=== PATIENT | male | born 1995 | race Caucasian/White ===

== ENCOUNTER 2018-08-17 16:17 | Emergency (ER) | payer SELFPAY ==
--- NOTE | 2018-08-17 16:21 | ED Physician Documentation ---
Ear Complaints - HISTORIAN Historian: patient - HPI Stated Complaint: right ear pain, cough and sore throat Chief Complaint: Earache Timing: still present Location of Pain: R ear Severity: mild Associated Symptoms: dull pain, aching, sore throat. denies: fever, chills, sharp pain, hearing loss, ringing, roaring Further Comments: yes (He states he started to cough a week ago, allergy drainge, no fever, right ear pain. No OTC meds are helping.) - ROS CONST: no problems CVS/RESP: none MS/SKIN/LYMPH: none NEURO/PSYCH: none - PAST HX Past History: none Allergies/Adverse Reactions: Allergies Allergy/AdvReac Type Severity Reaction Status Date / Time No Known Allergies Allergy Verified 08/17/18 16:32 Home Medications: Ambulatory Orders Medication Instructions Recorded NK 02/25/13 - SOCIAL HX Smoking History: non-smoker Alcohol Use: none Drug Use: none - FAMILY HX Family History: No - VITAL SIGNS Vital Signs: Vital Signs Temp Pulse Resp BP Pulse Ox 130/84 01/09/16 06:40 - REVIEWED ASSESSMENTS Nursing Assessment Reviewed: Yes Vitals Reviewed: Yes Ear Complaint Physical Exam - EXAM General Appearance: no acute distress, alert Ear: auricle nml, pain w movement of auricl, right, erythema, dullness, loss of landmarks, bulging of TM. No: mastoid swelling, cerumen Mouth/Throat: pharyngeal erythema Eye: eyes nml inspection Resp/CVS: chest non-tender, breath sounds nml, heart sounds nml, no resp. distress, lungs clear Abdomen: non-tender Skin: nml color, no skin rash Neuro/Psych: oriented x3 Discharge Clincal Impression: Acute otitis media Referrals: Primary Doctor,No [Primary Care Provider] - 2 Days Comments: 1. Cefdinr 300 mg take 1 by mouth twice daily x 14 days 2. Continue OTC meds as directed for pain 3. See PCP in 2-4 days if no improvement 4. Return to ER for any concerns Condition: Stable Disposition: 01 HOME, SELF-CARE Decision to Admit: NO Date of Decison to Admit: 08/17/18 Decision Time: 16:40
[2018-08-17 16:37] VITALS: BP 137/87
== END 2018-08-17 16:47 | disposition home or self-care (01) ==
LOC: ED 16:17
DX: H66.91 Otitis media, unspecified, right ear (principal)
CPT/HCPCS: 99282; 99283

== ENCOUNTER 2019-05-12 23:19 | Emergency (ER) | payer OTHER ==
--- NOTE | 2019-05-12 23:35 | ED Physician Documentation ---
Ear Complaints - HISTORIAN Historian: patient - HPI Stated Complaint: Rt earache today...COLIN that has decreased but ongoing for a week Timing: still present Location of Pain: R ear Severity: moderate Associated Symptoms: dull pain, aching. denies: fever, chills Further Comments: yes (He states he has had a headache which is resolved and now his right ear is hurting. No fever HE did take OTC med with mild relief. No sick contacts) - ROS CONST: no problems MS/SKIN/LYMPH: none NEURO/PSYCH: none - PAST HX Past History: none Allergies/Adverse Reactions: Allergies Allergy/AdvReac Type Severity Reaction Status Date / Time No Known Allergies Allergy Verified 05/12/19 23:32 Home Medications: Ambulatory Orders Medication Instructions Recorded NK 02/25/13 - SOCIAL HX Smoking History: non-smoker Alcohol Use: none Drug Use: none - FAMILY HX Family History: No - VITAL SIGNS Vital Signs: Vital Signs Temp Pulse Resp BP Pulse Ox 97.8 F 60 14 125/65 98 05/12/19 23:19 05/12/19 23:19 05/12/19 23:19 05/12/19 23:19 05/12/19 23:19 - REVIEWED ASSESSMENTS Nursing Assessment Reviewed: Yes Vitals Reviewed: Yes Ear Complaint Physical Exam - EXAM General Appearance: no acute distress, alert Ear: auricle nml, right, loss of landmarks, bulging of TM Mouth/Throat: lips nml, pharynx nml Nose: nml inspection Eye: eyes nml inspection Resp/CVS: chest non-tender, breath sounds nml, heart sounds nml, no resp. distress, lungs clear, reg. rate & rhythm Abdomen: non-tender Skin: nml color Neuro/Psych: oriented x3 Discharge Clincal Impression: Acute otitis media Referrals: Primary Doctor,No [Primary Care Provider] - 2 Days Comments: 1. Augmentin 875/125 mg take 1 by mouth twice daily x 10 days 2. OTC meds as directed as needed for pain 3. Follow up with PCP in 2-4 days 4. Return to ER for any increased concerns Condition: Stable Disposition: 01 HOME, SELF-CARE Decision to Admit: NO Date of Decison to Admit: 05/12/19 Decision Time: 23:45
[2019-05-12 23:37] VITALS: BP 125/65
[2019-05-12] MEDS: AMOXICILLIN/POT 875/125 1 EACH PO ONE (23:40)
== END 2019-05-12 23:46 | disposition home or self-care (01) ==
LOC: ED 23:19
DX: H66.91 Otitis media, unspecified, right ear (principal)
CPT/HCPCS: 99282; 99283